=== PATIENT | female | born 1945 | race Caucasian/White ===

== ENCOUNTER → 2018-10-21 | Day surgery (SDC) | payer MEDICARE ==
[2018-09-27 14:00] LABS: BASOPHILS % 0.7 % (0.0-1.0); EOSINOPHILS # (AUTO) 0.2 (0.0-0.4); EOSINOPHILS % 3.7 % (0.0-6.0); HEMATOCRIT 37.6 % (34.2-44.1); HEMOGLOBIN 12.6 g/dL (12.0-16.0); LYMPHOCYTES # (AUTO) 1.5 (1.0-3.2); LYMPHOCYTES % 25.8 % (18.0-39.1); MEAN CORPUSCULAR HEMOGLOBIN 31.3 pg (28-32); MEAN CORPUSCULAR HGB CONC 33.5 g/dL (31-35); MEAN CORPUSCULAR VOLUME 93.5 fL (81-99); MONOCYTES # (AUTO) 0.8 (0.2-0.8); MONOCYTES % 13.7 % (4.4-11.3); NEUTROPHILS # (AUTO) 3.3 (2.1-6.9); NEUTROPHILS % 55.6 % (38.7-80.0); PLATELET COUNT 213 x10e3/uL (140-360); RED BLOOD COUNT 4.02 x10e6/uL (3.6-5.1); RED CELL DISTRIBUTION WIDTH 12.2 % (11.7-14.4)
[2018-09-27 14:18] LABS: CALCIUM 10.1 mg/dL (8.4-10.2); CREATININE, SERUM 1.1 mg/dL (0.57-1.11)
--- NOTE | 2018-09-27 14:37 | Diagnostic Imaging Report ---
EXAMINATION: PA and lateral views of the chest. COMPARISON: None CLINICAL HISTORY: Preoperative examination for podiatry surgery DISCUSSION: Lines/tubes: None. Lungs: The lungs are well inflated and clear. There is no evidence of pneumonia or pulmonary edema. Pleura: There is no pleural effusion or pneumothorax. Heart and mediastinum: The cardiomediastinal silhouette is normal. Bones and soft tissues: No acute bony abnormalities. Degenerative changes in the thoracic spine IMPRESSION: No acute cardiopulmonary abnormalities. Signed by: Dr. Dariel Cho M.D. on 09/27/2018 2:33 PM
[~2018-10-21] MED LIST: ADVAIR HFA 115-12 GM INH; ALENDRONATE SOD70 MG PO; AMBIEN5 MG PO; ASPIR 8181 MG PO; ATORVASTATIN CA20 MG PO; BUPIVACAINE HCL 0.5% INJ 30 ML VIAL INJ ONE; CALCIUM + VITA1 EACH PO; CEFAZOLIN SOD 1 GM/NS 50ML 100 ML IV ONE; DEXAMETHASONE SOD PHOS INJ 4 MG/ML VIAL ONE; FENTANYL CITRATE/PF 100MCG/2 ML INJ ONE; GABAPENTIN300 MG PO; KETOROLAC TROMETHAMINE 30 MG/ML VIAL ONE; LIDOCAINE HCL 2% LOCAL INJ 5 ML SDV VIAL INJ ONE; LORATADINE10 MG PO; LOSARTAN POTAS100 MG PO; LOSARTAN POTASS25 MG PO; MELOXICAM7.5 MG PO; METFORMIN HCL500 MG PO; METOPROLOL SUC100 MG PO; MIDAZOLAM HCL 2 MG/2 ML VIAL ONE; MUPIROCIN 2% OINT 22 GM TUBE ONE; NORVASC10 MG PO; OMEPRAZOLE20 MG PO; ONDANSETRON HCL INJ 2MG/ML 2ML 2 MG/ML VIAL ONE; PRAMIPEXOLE D0.25 MG PO; PROPOFOL IV EMULSION 10 MG/ML 20 ML VIAL ONE; SEVOFLURANE INHAL SOLN 250 ML PEN BTL ONE; ULTRAM50 MG PO; [UNRECOGNIZED DRUG - OTHER] PO; [UNRECOGNIZED DRUG - OTHER] PO
--- OUTSIDE RECORDS SUMMARY | 2018-10-21 05:38 | XMS REPORT | Encounter Summary ---
Author Organization Unknown Address [address] [place] [address] Phone [phone] Care Team Providers Care Supervisor Carding Name Role Phone Dr. Gracie Thomas 3 [phone] Gracie Thomas MD 3 [phone] Didier John MD 3 [phone] Chip Hayden DPM 2 [phone] [facility] [place] 2 [phone] José Luis Stephenson MD 107 [phone] Matt Kate MD 111 [phone] Oscar Deluna MD 115 [phone] [facility]) 125 [phone] René Sweeney MD 130 [phone] Reason for Visit Plantar fasciitis of left foot; Benign essential hypertension; Gastroesophageal reflux disease without esophagitis Instructions 1. Benign essential hypertension losartan 50 mg-hydrochlorothiazide 12.5 mg tablet metoprolol succinate ER 50 mg tablet,extended release 24 hr 2. Pain of left ankle joint meloxicam 15 mg tablet tramadol 50 mg tablet 3. Body mass index 30+ - obesity body mass index: care instructions learning about healthy weight 4. Gastroesophageal reflux disease without esophagitis omeprazole 40 mg capsule,delayed release 5. Plantar fasciitis of left foot podiatry referral - UPDATED REFERRAL-;Please contact & schedule our patient. thank you. 6. Diabetic peripheral neuropathy neurology referral - Please schedule & contact our patient. thank you 7. Low back pain XR, lumbosacral spine, 2 or 3 view orthopedic referral - UPDATED REFERRAL 8. Bilateral hip joint pain physical therapy referral XR, hip, bilateral - BILATERAL 9. Osteoporosis 10. Aphthous ulcer of mouth chlorhexidine gluconate 0.12 % mouthwash 11. Dysuria urinalysis, dipstick culture, urine 12. Urethral stricture urology referral - Please schedule & contact our patient./FAX CLINICAL TO [phone] Discussion Note: None recorded. Plan of Care Reminders Provider Appointments Est Patient 05/31/2018 10:00AM Gracie Thomas MD Lab Urinalysis, Dipstick 05/03/2018 [facility] ([facility] [place] Culture, Urine 05/03/2018 [facility] Laboratory Referral Orthopedic Referral 05/03/2018 Cesar Fan MD Physical Therapy Referral 05/03/2018 [facility] Neurology Referral 05/03/2018 Kong Xavier MD Podiatry Referral 05/03/2018 Chip Hayden DPM Urology Referral 05/03/2018 Oscar Deluna MD Procedures None recorded. Surgeries None recorded. Imaging XR, Lumbosacral Spine, 2 or 3 View 05/03/2018 [facility] [place] XR, Hip, Bilateral 05/03/2018 [facility] [place] Medications Name Start Date alendronate 70 mg tablet Take 1 tablet every week by oral route. atorvastatin 20 mg tablet Take 1 tablet every day by oral route at bedtime. Calcium 600 with Vitamin D3 BID- OTC chlorhexidine gluconate 0.12 % mouthwash Place 15 mL twice a day by mucous membrane route as needed. fluticasone 50 mcg/actuation nasal spray,suspension QD gabapentin 300 mg capsule TAKE ONE TABLET BY MOUTH 3 TIMES A DAY hydroxyzine HCl 25 mg tablet Take 1 tablet every day by oral route as needed for 30 days. Lancets, Super Thin QD Longs Adult Low Strength ASA 81 mg tablet,delayed release Take 1 tablet every day by oral route. losartan 50 mg-hydrochlorothiazide 12.5 mg tablet Take 1 tablet every day by oral route for 30 days. meloxicam 15 mg tablet Take 1 tablet every day by oral route for 30 days. metformin 500 mg tablet TAKE ONE TABLET BY MOUTH ONCE A DAY metoprolol succinate ER 100 mg tablet,extended release 24 hr Take 1 tablet every day by oral route for 90 days. metoprolol succinate ER 50 mg tablet,extended release 24 hr Take 1 tablet every day by oral route for 30 days. montelukast 10 mg tablet QD omeprazole 40 mg capsule,delayed release Take 1 capsule every day by oral route for 30 days. OneTouch Delica Lancets 33 gauge QD OneTouch Verio strips Take 1 strip every day by miscell. route. pramipexole 0.125 mg tablet Take 1 tablet 3 times a day by oral route for 90 days. ProAir HFA 90 mcg/actuation aerosol inhaler Inhale 2 puffs every 6-8 hours by inhalation route as needed for 10 days. tramadol 50 mg tablet Take 1 tablet twice a day by oral route as needed for 15 days. No alcohol or driving when on this medicine Medications Administered None recorded. Vitals Height Weight BMI Blood Pressure 5 ft 1 in 200 lbs 37.8 kg/m2 150/90 mm[Hg] Lab Results Date Name Specimen Result Interpretation Description Value Range Status Address 05/03/2018 Urinalysis, Dipstick Color Color yellow [facility] ([facility]) [place]: [address] [place] Color Appearance clear [facility] ([facility] [place]: [address] [place] Color Glucose negative [facility] ([facility] [place]: [address] [place] Color Bilirubin negative [facility] ([facility] [place]: [address] [place] Color Ketones negative [facility] ([facility]) [place]: [address] [place] Color Specific [place] 1.025 [facility] ([facility]) [place]: [address] [place] Color Blood negative [facility] [place]: [address] [place] Color PH 6.0 [facility] [place]: [address] [place] Color Protein negative [facility]) [place]: [address] [place] Color Urobilinogen 0.2 [facility] ([facility] [place]: [address] [place] Color Nitrites negative [facility] ([facility]) [place]: [address] [place] Color Leukocytes small [facility] ([facility] [place]: [address] [place] Allergies Code Code System Name Reaction Severity Status Onset 40689 RxNorm Lisinopril Cough Active Sulfa (Sulfonamide Antibiotics) Active 84171 RxNorm Terbinafine Respiratory Distress Active 43721 RxNorm Tetracycline Active Problems Name Status Onset Date Source Type 2 Diabetes Mellitus without Complication Active 06/17/2016 Mixed Hyperlipidemia Active 06/17/2016 Body Mass Index 30+ - Obesity Active 06/17/2016 Neuropathy Active 06/17/2016 Benign Essential Hypertension Active 06/17/2016 Gastroesophageal Reflux Disease without Esophagitis Active 06/17/2016 Non-alcoholic Fatty Liver Active 06/17/2016 Electrocardiogram Abnormal Active 06/17/2016 Alkaline Phosphatase Raised Active 07/09/2016 Blood in Urine Active 11/03/2016 Onychomycosis Active 03/14/2017 Diabetic Peripheral Neuropathy Active 03/14/2017 Restless Legs Active 03/14/2017 Allergic Rhinitis Active 03/14/2017 Osteoarthritis Active 03/14/2017 Plantar Fasciitis of Left Foot Active 02/01/2018 Osteoporosis Active 04/14/2018 Procedures Date Name Performed by 04/12/2014 Colonoscopy with Biopsy Information not available 05/25/1972 Foot/toes Surgery Procedure Information not available Breast Surgery Information not available Caesarean Section Information not available Cholecystectomy (Gall Bladder Removal) Information not available 05/03/2018 XR, Lumbosacral Spine, 2 or 3 View [facility] [place] [address] [place] [address] ([address]) 05/03/2018 XR, Hip, Bilateral [facility] [place] [address] [place] [address] ([address]) Vaccine List Vaccine Type influenza, high dose seasonal 01/05/20170.5 mL 12/24/20170.5 mL influenza, injectable, quadrivalent 12/12/2015 pneumococcal conjugate PCV 13 10/16/20160.5 mL pneumococcal polysaccharide PPV23 04/14/20180.5 mL pneumococcal, unspecified formulation 04/12/2013 Tdap 10/30/2016 Social History Smoking Status Never Smoker Past Encounters 05/03/2018 Benign Essential Hypertension; Pain of Left Ankle Joint; Body Mass Index 30+ - Obesity; Gastroesophageal Reflux Disease without Esophagitis; Plantar Fasciitis of Left Foot; Diabetic Peripheral Neuropathy; Low Back Pain; Bilateral Hip Joint Pain; Osteoporosis; Aphthous Ulcer of Mouth; Dysuria; Urethral Stricture Gracie Thomas MD: [address] [place] [address], Ph. 04/14/2018 Acute Bronchitis; Pneumococcal Vaccination; Senile Purpura; Peripheral Vascular Disease; Type 2 Diabetes Mellitus; Morbid Obesity Didier Garcia MD: [address] [place] [address], Ph. History of Present Illness Back Pain Reported By: Patient HPI: Location: lumbar; hip pain. Severity: pain level 9/10, severe (8-10), interference with work. Duration: intermittent (5-12 weeks). Onset/Timing: recurrent episode. Context: atraumatic. Alleviating Factors: rest, relieved by heat, NSAIDS, analgesics. Aggravating Factors: movement/positioning. Associated Symptoms: no fever, no weak limbs, no numbness of the legs/feet, no tingling, no chills. Previous Injury: previous injury to lumbar region: lumbar years ago Note:72yo female presents for follow-up visit. Last visit one month ago 03/28/18. Had AWV on 03/04/[address] Hassan. Pt recently switched from [employer] to [employer] insurance on Apr 12. Her neurologist, Dr Kong Xavier is on [employer]. Next appt with Dr Xavier on May 16, 2018.<div>Was seen by Dr Hassan for bronchitis earlier this month on 04/14/18. Took Augmentin & Cheratussin with good results. Did not buy ProAir inhaler (too expensive).</div> <div>Two weeks ago, stepped on niece's toy with left foot. Had immediate pain & amp; swelling in left foot. Needs podiatry referral updated to Dr Hayden to [facility] if he is taking her new insurance. Pt is planning to go to [facility] to get X R of lumbar spine & both hips. Has information to schedule with ortho, Dr René Sweeney at [facility], but will check to make sure he is in insurance.< /div><div>
</div><div>Pt would like to check urine - having some mild dysuria for past week. Usually sees Dr Oscar Deluna once a year in Apr. Has seen him for many years for urethral dilation.</div><div>
</div><div>Here today for referral updates with new insurance & medication refills. Patient is taking medicine consistently. Not having any issues with them.<div></div> </div><div> PMHx:</div><div>DM - Last A1c 6.4% at visit 10/22/17. AST 15, ALT 19, glu 119, Cr 0.75, GFR >60, K 4.7.
</div><div>Home blood sugar in 89-150 range. Last A1c was 6.4% on 10/22/17. On metformin.</div><div>Diabetic neuropathy - Dr. Xavier, neurologist. Recommended staying on gabapentin rather than switch to Lyrica. Had EMG/NCS showing mild diabetic neuropathy.</div><div>Restless legs - on medication per neurology. continuing pramipexole 0.125mg bid-tid for restless legs & leg cramps.</div><div>Cataracts - stable, no surgery needed. <span style="font-size: 14px;">Followed by Dr Matt Kate, </span>ophtho<span style="font-size: 14px;">. Did not see him in 2018.</span></div><div>Urethral stricture - Usually sees Dr Oscar Deluna once a year in Apr. Has seen him for many years for urethral dilation, past 25yrs.<div>Followed by Dr Stephenson, GI. Next colonoscopy age 75</div><div>
</div><div>Arthritis - followed by Dr Hayden, podiatry. Pt notes she's been having more trouble with bilateral hip pain & low back pain. 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 Is followed regularly by Dr Hayden, electronics worker, for acc essory bone in left foot. Would be interested in ortho eval (?injection) and ph ysical therapy for home exercises.</div><div>
</div><div>Osteoporosis - Since last visit, pt had bone density at [facility] on 03/15/18. Reviewed calcium & vitamin D recommendations as outline by Dr Hurtado. Will start weekly Fosamax.< /div><div><div>
</div><div><span style="font-size: 14px;">Has appt with derm, Dr. Arely Noble on Jan 07, 2018. Notes that the 8 tablets of diflucan & clotrimazole/betamethasone cream has resolved all the 'heat rash' under breasts. </span></div></div></div> Review of Systems:ROS as noted in the HPI Review of Systems Comprehensive General Adult ROS Reported By: Patient Constitutional: Constitutional: no fever Cardiovascular: Cardiovascular: no chest pain Respiratory: Respiratory: no shortness of breath Gastrointestinal: Gastrointestinal: no abdominal pain Musculoskeletal: Musculoskeletal: muscle aches, arthralgias/joint pain, back pain Neurologic: Neurologic: no loss of consciousness, no headaches Physical Exam General Adult Exam (Female), Upper Respiratory Infection Exam Comprehensive Reported By: Patient Constitutional: General Appearance: well-developed, morbidly obese. Level of Distress: NAD. Ambulation: limited ambulation; ambulating slowly & in discomfort to weight bearing , Lt foot Discomfort below the medial malleolus +, edema + Psychiatric: Insight: good judgement; non stop talking throughout the visit. Mental Status: active and alert, normal mood, normal affect. Orientation: to time, to place, to person Head: Head: normocephalic, atraumatic Eyes: Lids and Conjunctivae: non-injected, no discharge, no pallor. Pupils: PERRLA. Corneas: grossly intact. EOM: EOMI. Lens: clear. Sclerae: non-icteric ENMT: Ears: no lesions on external ear, EACs clear, TMs clear. Hearing: no hearing loss. Nose: no lesions on external nose, nares patent, no septal deviation, nasal passages clear, no sinus tenderness, no nasal discharge. Lips, Teeth, and Gums: no mouth or lip ulcers, no bleeding gums, normal dentition. Oropharynx: moist mucous membranes, no erythema, no exudates, tonsils not enlarged Neck: Neck: supple, trachea midline, no masses, FROM. Lymph Nodes: no cervical LAD, no supraclavicular LAD, no axillary LAD. Thyroid: no enlargement, non- tender, no nodules Lungs: Respiratory effort: no dyspnea. Auscultation: breath sounds normal, good air movement, CTA except as noted, no wheezing, no rales/crackles, no rhonchi Cardiovascular: Heart Auscultation: RRR, normal S1, normal S2, no murmurs, no rubs, no gallops Abdomen: Bowel Sounds: normal. Inspection and Palpation: soft, no tenderness, no guarding, no rebound tenderness, no masses, no CVA tenderness; morbidly obese. Liver: non-tender, no hepatomegaly Musculoskeletal:: Motor Strength and Tone: normal motor strength, normal tone. Joints, Bones, and Muscles: no bony abnormalities, no contractures, no malalignment, limited ROM, tenderness. Extremities: no cyanosis, no edema, no varicosities Neurologic: Gait and Station: normal gait, normal station. Cranial Nerves: grossly intact. Sensation: grossly intact Skin: Inspection and palpation: no rash, no lesions, no abnormal nevi, good turgor, no jaundice. Nails: normal Back: Thoracolumbar Appearance: normal curvature
--- OUTSIDE RECORDS SUMMARY | 2018-10-21 05:38 | XMS REPORT ---
Author [facility] Address Unknown Phone Unavailable Care Team Providers Care French Polisher Name Role Phone CARTER PABLO Unavailable Unavailable Problems This patient has no known problems. Allergies, Adverse Reactions, Alerts This patient has no known allergies or adverse reactions. Medications This patient has no known medications. Results Test Description Test Time Test Comments Text Results Atomic Results Result Comments CHEST 2 VIEWS 2018-09-27 14:32:00 [place] [address] Patient Name: CASPER MEADE MR #: [id number] : 1945 Age/Sex: 73/F Req #: [id number] Adm Physician: Ordered by: CARTER PABLO DPM Report #: [id number] Location: OR Room/Bed: Procedure: [id number] DX/CHEST 2 VIEWS Exam Date: 09/27/18 Exam Time: 1400 REPORT STATUS: Signed EXAMINATION: PA and lateral views of the chest. CO MPARISON: None CLINICAL HISTORY: Preoperative examination for podiatry surgery DISCUSSION: Lines/tubes: None. Lungs: The lungs are well inflated and clear. There is no evidence of pneumonia or pulmonary edema. Pleura: There is no pleural effusion or pneumothorax. Heart and mediastinum: The cardiomediastinal silhouette is normal. Bones and soft tissues: No acute bony abnormalities. Degenerative changes in the thoracic spine IMPRESSION: No acute cardiopulmonary abnormalities. Signed by: Dr. hSerrell Troy M.D. on 09/27/2018 2:33 PM Dictated By: SHERRELL TROY MD [id number] Transcribed By: JOSE GUADALUPE on 09/27/18 1433 COPY TO: CARTER PABLO DPM
--- OUTSIDE RECORDS SUMMARY | 2018-10-21 05:39 | XMS REPORT | Encounter Summary ---
Author Organization Unknown Address [address] [place] [address] Phone [phone] Care Team Providers Care City Dispatcher Name Role Phone Dr. Gracie Thomas 3 [phone] [facility] [place] 2 [phone] José Luis Stephenson MD 107 [phone] Matt Kate MD 111 [phone] Oscar Deluna MD 115 [phone] Chip Hayden DPM 120 [phone] [facility] 125 [phone] René Sweeney MD 130 [phone] Reason for Visit Benign essential hypertension Instructions 1. Benign essential hypertension irbesartan 300 mg-hydrochlorothiazide 12.5 mg tablet 2. Urethral stricture urology referral - PLEASE FAX NOTES TO [phone]. 3. Osteoarthritis 4. Low back pain orthopedic referral - PLEASE FAX NOTES TO [phone]. 5. Body mass index 30+ - obesity body mass index: care instructions learning about healthy weight 6. Depression screening learning about depression Discussion Note: None recorded. Plan of Care Reminders Provider Appointments Est Patient 08/09/2018 10:30AM Gracie Thomas MD Lab None recorded. Referral Urology Referral 06/28/2018 Oscar Deluna MD Orthopedic Referral 06/28/2018 Cesar Fan MD Procedures None recorded. Surgeries None recorded. Imaging None recorded. Medications Name Start Date alendronate 70 mg tablet Take 1 tablet every week by oral route. atorvastatin 20 mg tablet Take 1 tablet every day by oral route at bedtime. Calcium 600 with Vitamin D3 BID- OTC chlorhexidine gluconate 0.12 % mouthwash Place 15 mL twice a day by mucous membrane route as needed. clotrimazole-betamethasone 1 %-0.05 % topical cream fluticasone propionate 50 mcg/actuation nasal spray,suspension SPRAY TWO SPRAYS IN EACH NOSTRIL ONCE DAILY gabapentin 300 mg capsule TAKE ONE TABLET BY MOUTH 3 TIMES A DAY hydroxyzine HCl 25 mg tablet Take 1 tablet every day by oral route as needed for 30 days. irbesartan 300 mg-hydrochlorothiazide 12.5 mg tablet Take 1 tablet every day by oral route. Lancets, Super Thin QD Longs Adult Low Strength ASA 81 mg tablet,delayed release Take 1 tablet every day by oral route. loratadine 10 mg tablet Take 1 tablet every day by oral route as needed. losartan 100 mg-hydrochlorothiazide 25 mg tablet Take 1 tablet every day by oral route for 90 days. meloxicam 15 mg tablet TAKE ONE TABLET BY MOUTH DAILY FOR 30 DAYS metformin 500 mg tablet TAKE ONE TABLET BY MOUTH TWICE A DAY metoprolol succinate ER 100 mg [...] 30 days. OneTouch Delica Lancets 33 gauge USE TO CHECK FOR BLOOD SUGAR DAILY DIRECTED OneTouch Verio strips TEST ONCE DAILY pramipexole 0.125 mg tablet Take 1 tablet 3 times a day by oral route for 90 days. tramadol 50 mg tablet Take 1 tablet twice a day by oral route as needed for 15 days. Medications Administered None recorded. Vitals Height Weight BMI Blood Pressure 5 ft 1 in 203.4 lbs 38.4 kg/m2 (1) 150/94 mm[Hg] (2) 160/82 mm[Hg] Lab Results None recorded. Allergies Code Code System Name Reaction Severity Status Onset 44621 RxNorm Amlodipine Active 12431 RxNorm Lisinopril Cough Active Sulfa (Sulfonamide Antibiotics) Active 81309 RxNorm Terbinafine Respiratory Distress Active 25570 RxNorm Tetracycline Active Problems Name Status Onset [...] Cholecystectomy (Gall Bladder Removal) Information not available Vaccine List Vaccine Type influenza, high dose seasonal 01/05/20170.5 mL 12/24/20170.5 mL influenza, injectable, quadrivalent 12/12/2015 pneumococcal conjugate PCV 13 10/16/20160.5 mL pneumococcal polysaccharide PPV23 04/14/20180.5 mL pneumococcal, unspecified formulation 04/12/2013 Tdap 10/30/2016 Social History Smoking Status Never Smoker Past Encounters 06/28/2018 Benign Essential Hypertension; Urethral Stricture; Osteoarthritis; Low Back Pain; Body Mass Index 30+ - Obesity; Depression Screening Gracie Thomas MD: [address] [place] [phone], Ph. 05/31/2018 Acute Bronchitis; Benign Essential Hypertension; Type 2 Diabetes Mellitus without Complication; Body Mass Index 30+ - Obesity; Diabetic Peripheral Neuropathy; Osteoarthritis; Restless Legs Gracie Thomas MD: [address] [place] [phone], Ph. History of Present Illness Back Pain [...] injury to lumbar region: lumbar years ago URI - AMS Reported By: Patient Note:73yo female presents for follow-up visit. Last visit one month ago 05/31/18. Had AWV on 03/04/[address] Hassan. Pt saw proofer black and white, Dr Hayden on 05/30/18. He said to continue meloxicam until he can do foot surgery on left (hopes to make it three more months until the end of school year). Dr Hayden did XR of left foot in his office & found new bone fx after pt stepped on niece's toy. Has new tighter elastic ankle support from Dr Hayden's office.<div>
</div> <div>Since last visit, pt saw Dr Lyric Bowen at [facility] in [place], [place] last 06/22/18 - no change in glasses prescription. Next appt in 06/2019.</div><div>
</div><div>Since last visit, pt saw Dr Xavier, neuro on 06/07/18 and got gabapentin refill for next year. Next appt with Dr Xavier in one year in 05/2019.</div><div>
</div><div>Pt saw Dr Cesar Fan, ortho on 05/30/18 regarding back & hips. Is taking Fosamax 70mg weekly for osteoporosis along with calcium & vit D. Has not needed physical therapy. Next appt with Dr Fan is 07/11/18.</div><div>
</div><div>Needs referral updated to Dr Deluna, urologist for annual exam. Was due to see him in Apr 2018. Has seen him for many years for urethral dilation.</div><div><div><div><div>< div></div> </div><div>PMHx:</div><div>DM - Last A1c 6.4% at visit 10/22/17. AST 15, ALT 19, glu 119, Cr 0.75, GFR >60, K 4.7.
</div><div>Home blood sugar in 89-150 range. Last A1c was 6.4% on 10/22/17. On metformin.</div><div>Diabetic neuropathy - Dr. Xavier, neurologist. Recommended staying on gabapentin rather than switch to Lyrica. Had EMG/NCS showing mild diabetic neuropathy.</div><div> Restless legs - on medication per neurology. continuing pramipexole 0.125mg bid- tid for restless legs & leg cramps.</div><div>Cataracts - stable, no surgery needed. </div><div>Urethral stricture - Usually sees Dr Oscar Deluna once a year in Apr. Has seen him for many years for urethral dilation, past 25yrs.<div> Followed by Dr Stephenson, GI. Next colonoscopy age 75</div><div>
</div><div> Arthritis - followed by Dr Hayden, podiatry. Pt notes she's been having more t rouble with bilateral hip pain & low back pain. 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 Is followed regularly by Dr Hayden, [facility], for accessory bone in left foot. Would be interested in ortho eval (?injection) and physical therapy for home exercises.</div><div>
</div><div> Osteoporosis - Since last visit, pt had bone density at [facility] on 03/15/18. Rev iewed calcium & vitamin D recommendations as outline by Dr Hurtado. Will start weekly Fosamax.</div><div><div>
</div><div><span style="font-size: 14px;">Had appt with scar, Dr. Arely Noble on Jan 07, 2018. Notes that the 8 tablets of diflucan & clotrimazole/betamethasone cream has resolved all the 'heat rash' under breasts.</span></div></div></div></div></div></div> Review of Systems:ROS as noted in the HPI Review of Systems Comprehensive General Adult ROS Reported By: Patient Constitutional: Constitutional: no fever Cardiovascular: Cardiovascular: no chest pain Respiratory: Respiratory: no wheezing, no shortness of breath Gastrointestinal: Gastrointestinal: no abdominal pain, no diarrhea Musculoskeletal: Musculoskeletal: muscle aches, arthralgias/joint pain, back pain Neurologic: Neurologic: no loss of consciousness, no headaches Endocrine: Endocrine: fatigue Physical Exam General Adult Exam (Female), Upper [...]
--- OUTSIDE RECORDS SUMMARY | 2018-10-21 05:39 | XMS REPORT | Encounter Summary ---
Author Organization Unknown Address [address] [place] [address] Phone [phone] Care Team Providers Care Surface Supervisor Name Role Phone Dr. Gracie Thomas 3 [phone] Gracie Thomas MD 3 [phone] Didier John MD 3 [phone] Chip Hayden DPM 2 [phone] [facility] [place] 2 [phone] José Luis Stephenson MD 107 [phone] Matt Kate MD 111 [phone] Oscar Deluna MD 115 [phone] [facility] 125 [phone] René Sweeney MD 130 [phone] Reason for Visit Type 2 diabetes mellitus without complication; Benign essential hypertension; sore throat; cough Instructions 1. Acute bronchitis azithromycin 250 mg tablet Cheratussin AC 10 mg-100 mg/5 mL oral liquid loratadine 10 mg tablet 2. Benign essential hypertension losartan 100 mg-hydrochlorothiazide 25 mg tablet 3. Type 2 diabetes mellitus without complication diabetic ophthalmology referral - [place] [facility] PLEASE FAX NOTES TO [phone]. metformin 500 mg tablet 4. Body mass index 30+ - obesity body mass index: care instructions learning about healthy weight 5. Diabetic peripheral neuropathy 6. Osteoarthritis 7. Restless legs Discussion Note: None recorded. Plan of Care Reminders Provider Appointments Return to Office on or around 06/27/2018 Gracie Thomas MD Est Patient 06/28/2018 10:00AM Gracie Thomas MD Lab None recorded. Referral Diabetic Ophthalmology Referral 05/31/2018 Lyric Bowen MD Procedures None recorded. Surgeries None recorded. Imaging None recorded. Medications Name Start Date alendronate 70 mg tablet Take 1 tablet every week by oral route. atorvastatin 20 mg tablet Take 1 tablet every day by oral route at bedtime. azithromycin 250 mg tablet TAKE 2 TABLETS (500 MG) BY ORAL ROUTE ONCE DAILY FOR 1 DAY THEN 1 TABLET (250 MG) BY ORAL ROUTE ONCE DAILY FOR 4 DAYS Calcium 600 with Vitamin D3 BID- OTC Cheratussin AC 10 mg-100 mg/5 mL oral liquid Take 10 mL every 6 hours by oral route as needed. chlorhexidine gluconate 0.12 % mouthwash Place 15 mL twice a day by mucous membrane route as needed. clotrimazole-betamethasone 1 %-0.05 % topical cream fluticasone 50 mcg/actuation nasal spray,suspension QD gabapentin [...] day by oral route for 90 days. losartan 50 mg-hydrochlorothiazide 12.5 mg tablet Take [...] day by oral route for 30 days. ondansetron 4 mg disintegrating tablet Take 2 tablets every 12 hours by oral route for 3 days. OneTouch Delica Lancets 33 gauge QD OneTouch Verio strips TEST ONCE DAILY pramipexole [...] BMI Blood Pressure 5 ft 1 in 196 lbs 37 kg/m2 160/100 mm[Hg] Lab Results Date Name Specimen Result Interpretation Description Value Range Status Address 05/03/2018 Urinalysis, Dipstick Color Color yellow [facility] [place]: [address] [place] Color Appearance clear [facility] [place]: [address] [place] Color Glucose negative [facility] [place]: [address] [place] Color Bilirubin negative [facility] [place]: [address] [place] Color Ketones negative [facility] [place]: [address] [place] Color Specific [place] 1.025 [facility] [place]: [address] [place] Color Blood negative [facility] [place] [address] [place] Color PH 6.0 [facility] [place]: [address] [place] Color Protein negative [facility] [place]: [address] [place] Color Urobilinogen 0.2 [facility] [place]: [address] [place] Color Nitrites negative [facility] [place]: [address] [place] Color Leukocytes small [facility] [place]: [address] [place] Allergies Code Code System Name Reaction Severity Status Onset 50142 RxNorm Lisinopril Cough Active Sulfa (Sulfonamide Antibiotics) Active 05838 RxNorm Terbinafine Respiratory Distress Active 62338 RxNorm Tetracycline Active Problems Name Status Onset [...] XR, Lumbosacral Spine, 2 or 3 View [facility] [place] [address] [place], [place] [id number] ([place]) 05/03/2018 XR, Hip, Bilateral [facility] [place] [address] [place], [place] [phone] ([place]) Vaccine List Vaccine Type influenza, high dose seasonal 01/05/20170.5 mL 12/24/20170.5 mL influenza, injectable, quadrivalent 12/12/2015 pneumococcal conjugate PCV 13 10/16/20160.5 mL pneumococcal polysaccharide PPV23 04/14/20180.5 mL pneumococcal, unspecified formulation 04/12/2013 Tdap 10/30/2016 Social History Smoking Status Never Smoker Past Encounters 05/31/2018 Acute Bronchitis; Benign Essential Hypertension; Type 2 Diabetes Mellitus without Complication; Body Mass Index 30+ - Obesity; Diabetic Peripheral Neuropathy; Osteoarthritis; Restless Legs Gracie Thomas MD: [address] [place] [phone], Ph. 05/03/2018 Benign Essential Hypertension; Pain of Left Ankle Joint; Body Mass Index 30+ - Obesity; Gastroesophageal Reflux Disease without Esophagitis; Plantar Fasciitis of Left Foot; Diabetic Peripheral Neuropathy; Low Back Pain; Bilateral Hip Joint Pain; Osteoporosis; Aphthous Ulcer of Mouth; Dysuria; Urethral Stricture Gracie Thomas MD: [address] [place] [phone], Ph. History of Present Illness Back Pain [...] follow-up visit. Last visit one month ago 05/03/17. Had AWV on 03/04/[address] Hassan. Since last visit, pt saw milk runner, Dr Hayden yesterday 05/30/18. He said to continue meloxicam until he can do foot surgery on left (hopes to make it three more months until the end of school year). Dr Hayden did XR of left foot in his office & found new bone fx after pt stepped on niece's toy. Has new tighter elastic ankle support from Dr Hayden's office.<div>Is scheduled to see neurologist, Dr Xavier next Wednesday06/07/18 for gabapentin.</div><div>Saw Dr Cesar Fan, ortho, yesterday morning regarding her back & hips. He reviewed the XRs and took one more XR of pelvis & he thought pain was from muscles. Recommended continuing NSAIDs and PT for exercises ([facility] is not in-network).
<div>
</div><div><div> <span style="font-size: 14px;">Has not scheduled with Dr Deluna for annual exam. Usually sees Dr Oscar Deluna once a year in Apr. Has seen him for many years for urethral dilation.</span>
</div><div><div>
</div><div>Here today for referral update for eye exam with new insurance & medication refills. Patient is taking medicine consistently. Not having any issues with them.</div>< div>Blood sugar was 242 this morning. BP 160/100 in office today.</div><div>Has been sick with cold for past 6days. Niece is also sick (16mo). Runny nose, sore throat, cough, low-grade fever on Wednesday (101 degrees). Taking Singulair & Tylenol.
<div></div> </div><div>PMHx:</div><div>DM - Last A1c 6.4% at visit 10/22/17. AST 15, ALT 19, glu 119, Cr 0.75, GFR >60, K 4.7.
</div><div>Home blood sugar in 89-150 range. Last A1c was 6.4% on 10/22/17. On metformin.</div>< div>Diabetic neuropathy - Dr. Xavier, neurologist. Recommended staying on gabapentin rather than switch to Lyrica. Had EMG/NCS showing mild diabetic neuropathy.</div><div>Restless legs - on medication per neurology. continuing pramipexole 0.125mg bid-tid for restless legs & leg cramps.</div><div> Cataracts - stable, no surgery needed. <span style="font-size: 14px;">Followed by Dr Matt Kate, </span>ophtho<span style="font-size: 14px;">. Did not see him in 2018.</span></div><div>Urethral stricture - Usually sees Dr Oscar Deluna once a year in Apr. Has seen him for many years for urethral dilation, past 25yrs.<div>Followed by Dr Stephenson, GI. Next colonoscopy age 75</div><div>
< /div><div>Arthritis - followed by Dr Hayden, podiatry. Pt notes she's been having more trouble with bilateral hip pain & low back pain. 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 Is followed regularly by Dr Hayden, milk runner, for accessory bone in left foot. Would be interested in ortho eval (?injection) and physical therapy for home exercises.</div><div>
< /div><div>Osteoporosis - Since last visit, pt had bone density at [facility] on 03/15/18. Reviewed calcium & vitamin D recommendations as outline by Dr Hurtado. Will start weekly Fosamax.</div><div><div>
</div><div><span style="font-size: 14px;">Has appt with derm, Dr. Arely Noble on Jan 07, 2018. Notes that the 8 tablets of diflucan & clotrimazole/betamethasone cream has resolved all the 'heat rash' under breasts.</span></div></div></div></div></div> </div> Review of Systems:ROS as noted in the HPI Review of Systems Comprehensive General Adult ROS Reported By: Patient Constitutional: Constitutional: fever Eyes: Eyes: no vision change ENMT: Ears: no difficulty hearing, no ear pain. Nose: no frequent nosebleeds, nose problems, sinus problems. Mouth/Throat: sore throat Cardiovascular: Cardiovascular: no chest pain Respiratory: Respiratory: no wheezing, no shortness of breath, no coughing up blood, cough Gastrointestinal: Gastrointestinal: no abdominal pain, no nausea, no vomiting, no diarrhea Musculoskeletal: Musculoskeletal: muscle aches, arthralgias/joint pain, back pain Neurologic: Neurologic: no loss of consciousness, no headaches Endocrine: Endocrine: fatigue Allergic/Immunologic: Allergy/Immunologic: runny nose, sinus pressure Physical Exam General Adult Exam (Female), Upper Respiratory Infection Exam Comprehensive Reported By: Patient Constitutional: General Appearance: well-developed, in no acute distress, morbidly obese. Ambulation: limited ambulation; ambulating slowly & in discomfort to weight bearing , Lt foot Discomfort below the medial malleolus +, edema + Psychiatric: Insight: good judgement; non stop talking throughout the visit. Mental Status: active and alert, normal mood, normal affect. Orientation: to time, to place, to person Head: Head: normocephalic, atraumatic Eyes: Lids and Conjunctivae: non-injected, no discharge, no pallor. Pupils: PERRLA, PERRLA. Corneas: grossly intact. EOM: EOMI. Lens: clear. Sclerae: non-icteric ENMT: Ears: no lesions on external ear, EACs clear, TMs clear. Hearing: no hearing loss. Nose: no lesions on external nose, nares patent, no septal deviation, nasal passages clear, no sinus tenderness, no nasal discharge, normal, pink and moist. Lips, Teeth, and Gums: no mouth or lip ulcers, no bleeding gums, normal dentition. Oropharynx: no exudates, tonsils not enlarged Neck: Neck: supple, trachea midline, no masses, FROM, symmetrical. Lymph Nodes: no cervical LAD, no supraclavicular LAD, no axillary LAD. Thyroid: no enlargement, non-tender, no nodules Lungs: Respiratory effort: no dyspnea. Auscultation: breath sounds normal, good air movement, CTA except as noted, no wheezing, no rales/crackles, no rhonchi Cardiovascular: Heart Auscultation: RRR, normal S1, normal S2, no murmurs, no rubs, no gallops. Auscultation regular rate and rhythm. Observation/Palpation of peripheral vascular system carotid pulse normal Abdomen: Bowel Sounds: normal. Inspection and Palpation: [...] abnormal nevi, good turgor, no jaundice. Nails: normal. Inspection and palpation: no rash Back: Thoracolumbar Appearance: normal curvature Ears: Right External auditory canal normal appearance. Left External auditory canal normal appearance. Right Tympanic membrane pearly argueta, landmarks clear. Left Tympanic membrane: pearly argueta, landmarks clear Oral Cavity/Mouth: Oral Mucosa: normal, moist. Tonsils: erythema. Posterior pharynx: erythema Lymph Nodes: Cervical no palpable lymph node enlargement, no submandibular adenopathy, no posterior cervical adenopathy, no anterior cervical adenopathy
--- OUTSIDE RECORDS SUMMARY | 2018-10-21 05:40 | XMS REPORT | Encounter Summary ---
Author Organization Unknown Address [address] [place] [address] Phone [phone] Care Team Providers Care Grain Commodity Manager Name Role Phone Dr. Gracie Thomas 3 [phone] [facility] [place] 2 [phone] José Luis Stephenson MD 107 [phone] Oscar Deluna MD 115 [phone] Chip Hayden DPM 120 [phone] [facility] 125 [phone] Cesar Fan MD 130 [phone] Reason for Visit Benign essential hypertension Instructions 1. Plantar fasciitis of left foot podiatry referral - PLEASE CALL PATIENT AND SCHEDULE HER AN APPOINTMENT. 2. Low back pain 3. Benign essential hypertension metoprolol succinate ER 50 mg tablet,extended release 24 hr metoprolol succinate ER 100 mg tablet,extended release 24 hr 4. Type 2 diabetes mellitus without complication OneTouch Verio strips 5. Body mass index 30+ - obesity body mass index: care instructions learning about healthy weight 6. Gastroesophageal reflux disease without esophagitis omeprazole 40 mg capsule,delayed release 7. Neuropathy Discussion Note: None recorded. Plan of Care Reminders Provider Appointments Nurse Visit 09/12/2018 8:00AM Nurse [place] Est Patient 09/19/2018 9:30AM Gracie Thomas MD Lab None recorded. Referral Podiatry Referral 08/09/2018 Chip Hayden DPM Procedures None recorded. Surgeries None recorded. Imaging None recorded. Medications Name Start Date alendronate 70 mg tablet Take 1 tablet every week by oral route. atorvastatin 20 mg tablet TAKE ONE TABLET BY MOUTH EVERY NIGHT AT BEDTIME Calcium 600 with Vitamin D3 BID- OTC [...] oral route as needed. losartan 100 mg-hydrochlorothiazide 12.5 mg tablet Take 1 tablet every day by oral route. 08/09/2018 losartan 100 mg-hydrochlorothiazide 25 mg tablet Take [...] 30 days. montelukast 10 mg tablet QD nitrofurantoin monohydrate/macrocrystals 100 mg capsule omeprazole 40 mg capsule,delayed release Take 1 capsule every day by oral route for 30 days. OneTouch Delica Lancets 33 gauge USE TO CHECK FOR BLOOD SUGAR DAILY DIRECTED OneTouch Verio strips TEST TWICE DAILY pramipexole 0.125 mg tablet Take 1 tablet 3 times a day by oral route for 90 days. tramadol 50 mg tablet Take 1 tablet twice a day by oral route as needed for 15 days. Medications Administered None recorded. Vitals Height Weight BMI Blood Pressure 5 ft 1 in 201.8 lbs 38.1 kg/m2 (1) 140/74 mm[Hg] (2) 142/80 mm[Hg] Lab Results None recorded. Allergies Code Code System Name Reaction Severity Status Onset 40632 RxNorm Amlodipine Active 338598 RxNorm Wilkerson Rash Active 83753 RxNorm Lisinopril Cough Active Sulfa (Sulfonamide Antibiotics) Active 18324 RxNorm Terbinafine Respiratory Distress Active 53040 RxNorm Tetracycline Active Problems Name Status Onset [...] Active 04/14/2018 Procedures Date Name Performed by 04/12/2009 Cholecystectomy (Gall Bladder Removal) Information not available 02/10/1991 Breast Surgery Information not available 02/08/1973 Caesarean Section Information not available 05/25/1972 Foot/toes Surgery Procedure Information not available Vaccine List Vaccine Type influenza, high dose seasonal 01/05/20170.5 mL 12/24/20170.5 mL influenza, injectable, quadrivalent 12/12/2015 pneumococcal conjugate PCV 13 10/16/20160.5 mL pneumococcal polysaccharide PPV23 04/14/20180.5 mL pneumococcal, unspecified formulation 04/12/2013 Tdap 10/30/2016 Social History Smoking Status Never Smoker Past Encounters 08/09/2018 Plantar Fasciitis of Left Foot; Low Back Pain; Benign Essential Hypertension; Type 2 Diabetes Mellitus without Complication; Body Mass Index 30+ - Obesity; Gastroesophageal Reflux Disease without Esophagitis; Neuropathy Gracie Thomas MD: [address] [place] [address], Ph. History of Present Illness Note:73yo female presents for follow-up visit. Last visit one month ago 06/28/18. Has upcoming appt next Wednesday08/15/18 with urologist, Dr Deluna -usually sees him in Apr, but had change of insurance so appt delayed. Has seen him for about 5 years for urethral dilation.<div>
<div>Pt saw Dr Lyric Bowen at [facility] in [place], [place] last 06/22/18 - no change in glasses prescription. Next appt in 06/2019.</div><div>
</div><div>Since last visit, pt saw Dr Griffin Fan, ortho on 07/11/18 for low back pain. Started physical therapy, but having trouble with insurance. Is taking Fosamax 70mg weekly for osteoporosis along with calcium & vit D. Return visit with Dr Fan on 08/16/18.</div><div>
</div><div>Needs referral updated to assistant store manager, Dr Hayden for left foot pain after school is out at end of August. Pt saw assistant store manager, Dr Hayden on 05/30/18. He said to continue meloxicam until he can do foot surgery on left (hopes to make it three more months until the end of school year). Dr Hayden did XR of left foot in his office & found new bone fx after pt stepped on niece's toy. Has new tighter elastic ankle support from Dr Hayden's office.</div><div><div>
</div><div>Pt saw Dr Xavier, neuro on 06/07/18 and got gabapentin refill for next year. Next appt with Dr Xavier in one year in 05/2019.</div><div>
</div><div>Here today for bp medication refills.< /div><div>
</div><div><div>PMHx:</div><div>DM - Last A1c 6.4% at visit 10/22/17. [...] cramps.</div><div> Cataracts - stable, no surgery needed. </div><div>Urethral stricture - Usually sees Dr Oscar Deluna once a year in Apr. Has seen him for many years for urethral dilation, past 25yrs.<div>Followed by Dr Stephenson, GI. Next colonoscopy age 75< /div><div>
</div><div>Arthritis - followed by Dr Hayden, podiatry. Pt notes she's been having more trouble with bilateral hip pain & low back pain. 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 Is followed regularly by Dr Hayden, assistant store manager, for accessory bone in left foot. Would be interested in ortho eval (?injection) and physical therapy for home exercises.< /div><div>
</div><div>Osteoporosis - Since last visit, pt had bone density at [facility] on 03/15/18. Reviewed calcium & vitamin D recommendations as outline by Dr Hurtado. Will start weekly Fosamax.</div><div><div>
</div><div> <span style="font-size: 14px;">Had appt with derm, Dr. Arely Noble on Jan 07, 2018. Notes that the 8 tablets of diflucan & clotrimazole/betamethasone cream has resolved all the 'heat rash' under breasts.</span></div></div></div>< /div></div></div> Review of Systems:ROS as noted in the HPI Review of Systems Comprehensive General Adult ROS Reported By: Patient Constitutional: Constitutional: no fever Cardiovascular: Cardiovascular: no chest pain Respiratory: Respiratory: no wheezing, no shortness of breath Gastrointestinal: Gastrointestinal: no abdominal pain, no diarrhea Musculoskeletal: Musculoskeletal: muscle aches, arthralgias/joint pain, back pain Neurologic: Neurologic: no loss of consciousness, no headaches, numbness; neuropathy on gabapentin Endocrine: Endocrine: fatigue Physical Exam General Adult [...] normal tone. Joints, Bones, and Muscles: no contractures, no malalignment, limited ROM, bony deformity, tenderness. Extremities: no cyanosis, no edema, no varicosities Neurologic: Gait and Station: normal gait, normal station. Cranial Nerves: grossly intact. Sensation: grossly intact Skin: Inspection and palpation: no rash, no lesions, no abnormal nevi, good turgor, no jaundice. Nails: normal Back: Thoracolumbar Appearance: normal curvature
--- OUTSIDE RECORDS SUMMARY | 2018-10-21 05:40 | XMS REPORT | Encounter Summary ---
Author Organization Unknown Address [address] [place] [address] Phone [phone] Care Team Providers Care Refrigeration Repair Supervisor Name Role Phone Dr. Gracie Thomas 3 [phone] [facility] [place] 2 [phone] José Luis Stephenson MD 107 [phone] Oscar Deluna MD 115 [phone] Chip Hayden DPM 120 [phone] [facility] 125 [phone] Cesar Fan MD 130 [phone] Reason for Visit lab only visit Instructions 1. Mixed hyperlipidemia CMP, serum or plasma lipid panel, serum 2. Benign essential hypertension CBC w/ auto diff 3. Type 2 diabetes mellitus without complication HbA1c (hemoglobin A1c), blood Discussion Note: None recorded. Patient educational handouts: No information available. Plan of Care Reminders Provider Appointments Est Patient 09/19/2018 9:30AM Gracie Thomas MD Lab CMP, Serum or Plasma 09/12/2018 [facility] Lipid Panel, Serum 09/12/2018 [facility] HbA1C (Hemoglobin a1C), Blood 09/12/2018 [facility] CBC W/ Auto Diff 09/12/2018 [facility] Referral None recorded. Procedures None recorded. Surgeries None recorded. Imaging [...] day by oral route for 30 days. [employer] Delica Lancets 33 gauge USE TO CHECK FOR BLOOD SUGAR DAILY DIRECTED OneTouch Verio strips TEST TWICE DAILY pramipexole 0.125 mg tablet Take 1 tablet 3 times a day by oral route for 90 days. tramadol 50 mg tablet Take 1 tablet twice a day by oral route as needed for 15 days. Medications Administered None recorded. Vitals None recorded. Lab Results None recorded. Allergies Code Code System Name Reaction Severity Status Onset 87761 RxNorm Amlodipine Active 485726 RxNorm Wilkerson Rash Active 85383 RxNorm Lisinopril Cough Active Sulfa (Sulfonamide Antibiotics) Active 38031 RxNorm Terbinafine Respiratory Distress Active 71739 RxNorm Tetracycline Active Problems Name Status Onset [...] History Smoking Status Never Smoker Past Encounters 09/12/2018 Mixed Hyperlipidemia; Benign Essential Hypertension; Type 2 Diabetes Mellitus without Complication Gracie Thomas MD: [address] [place] [address], Ph. History of Present Illness None recorded. Review of Systems None recorded. Physical Exam None recorded.
--- OUTSIDE RECORDS SUMMARY | 2018-10-21 05:41 | XMS REPORT | Encounter Summary ---
Author Organization Unknown Address [address] [place] [address] Phone [phone] Care Team Providers Care Principal Technical Writer Name Role Phone Dr. Gracie Thomas 3 [phone] [facility] [place] 2 [phone] José Luis Stephenson MD 107 [phone] Oscar Deluna MD 115 [phone] Chip Hayden DPM 120 [phone] [facility] 125 [phone] Cesar Fan MD 130 [phone] Reason for Visit lab follow-up; other - see typed reason Instructions 1. Type 2 diabetes mellitus without complication Segluromet 7.5 mg-1,000 mg tablet 2. Body mass index 30+ - obesity body mass index: care instructions learning about healthy weight 3. Candidiasis of vagina fluconazole 150 mg tablet 4. Mixed hypercholesterolemia and hypertriglyceridemia fenofibrate 160 mg tablet 5. Benign essential hypertension cardiology referral 6. Osteoarthritis orthopedic referral podiatry referral Discussion Note: None recorded. Plan of Care Reminders Provider Appointments Est Patient 10/28/2018 1:30PM Gracie Thomas MD Lab None recorded. Referral Cardiology Referral 09/29/2018 Orthopedic Referral 09/29/2018 Cesar Fan MD Podiatry Referral 09/29/2018 Chip Hayden DPM Procedures None recorded. Surgeries [...] needed. clotrimazole-betamethasone 1 %-0.05 % topical cream fenofibrate 160 mg tablet Take 1 tablet every day by oral route. fluconazole 150 mg tablet Take 1 tablet twice a week by oral route as needed. fluticasone propionate 50 mcg/actuation nasal spray,suspension SPRAY [...] day by oral route for 30 days. omeprazole 40 mg capsule,delayed release Take 1 capsule every day by oral route for 30 days. [employer] Delica Lancets 33 gauge USE TO CHECK FOR BLOOD SUGAR DAILY DIRECTED [employer] Verio strips TEST TWICE DAILY pramipexole 0.125 mg tablet Take 1 tablet 3 times a day by oral route for 90 days. Segluromet 7.5 mg-1,000 mg tablet Take 1 tablet every day by oral route in the morning. tramadol 50 mg tablet Take 1 tablet twice a day by oral route as needed for 15 days. Medications Administered None recorded. Vitals Height Weight BMI Blood Pressure 5 ft 1 in 199 lbs 37.6 kg/m2 (1) 180/90 mm[Hg] (2) 160/80 mm[Hg] Lab Results Date Name Specimen Result Interpretation Description Value Range Status Address 09/12/2018 CBC W/ Auto Diff Wbc 5.73 x10*3/L 3.98-10.04 x10*3/L [facility]: [address] Low Rbc 3.77 10*12/L 3.93-5.22 10*12/L [facility]: [address] Hemoglobin 12.00 g/dL 11.20-15.70 g/dL [facility]: [address] [place] Hematocrit 36.6 % 34.1-44.9 % [facility]: [address] [place] Mcv 97.1 fL 80.0-100.0 fL Final [facility]: [address] [place] Mch 31.8 pg 25.6-32.2 pg Final [facility]: [address] [place] Mchc 32.8 g/dL 32.2-35.5 g/dL [facility]: [address] [place] RDW-SD 44.5 fL 36.4-46.3 fL [facility]: [address] [facility] Plate[facility] Count 222.0 k/uL 182.0-369.0 k/uL [facility]: [address] [facility] Mpv 10.0 fL 7.5-11.5 fL [facility]: [address] [place] Neut% 52.8 % 34.0-71.1 % [facility]: [address] [place] Lymph% 30.4 % 19.3-51.7 % [facility]: [address] [place] Mon% 10.5 % 4.7-12.5 % [facility]: [address] [place] Eos% 5.6 % 0.7-5.8 % [facility]: [address] [facility] Baso% 0.7 % 0.1-1.2 % [facility]: [address] [place] Neut# 3.0 x10*3/L 1.6-6.1 x10*3/L [facility]: [address] [place] Lymph# 1.7 x10*3/L 1.2-3.7 x10*3/L [facility]: [address] [facility] Mon# 0.6 x10*3/L 0.2-0.9 x10*3/L [facility]: [address] [place] Eos# 0.32 x10*3/L 0.04-0.36 x10*3/L [facility]: [address] [place] Baso# 0.04 x10*3/L 0.01-0.08 x10*3/L [facility]: [address] [place] 09/12/2018 CMP, Serum or Plasma Alt 26 U/L 0-55 U/L [facility]: [address] [place] [address] Ast 21 U/L 5-34 U/L [facility]: [address] [facility] [place] High Bun 26.3 mg/dL 9.8-25.0 mg/dL [facility]: [address] Alk Phos 82 unit/L 40-150 unit/L [facility]: [address] High Glucose 191 mg/dL 70-99 mg/dL [facility]: [address] Albumin 3.7 g/dL 3.4-5.1 g/dL [facility]: [address] Creatinine 0.92 mg/dL 0.57-1.11 mg/dL [facility]: [address] eGFR Non- >60 mL/min/1.73m2 [facility]: [address] Total Bilirubin 0.6 mg/dL 0.2-1.2 mg/dL [facility]: [address] eGFR - >60 mL/min/1.73m2 [facility]: [address] Sodium 139 mEq/L 135-145 mEq/L [facility]: [address] Potassium 4.6 mEq/L 3.5-5.1 mEq/L [facility]: [address] [place] [address] Chloride 101 mmol/L 98-110 mmol/L [facility]: [address] Total Protein 7.3 g/dL 6.1-8.2 g/dL [facility]: [address] Calcium 9.9 mg/dL 8.6-10.4 mg/dL [facility]: [address] Co2 27.2 mmol/L 20.0-32.0 mmol/L [facility]: [address] [place] [address], [place] Anion Gap 11 calc Final [facility]: [address] [place] [address], [place] 09/12/2018 Lipid Panel, Serum Low Hdl 34 mg/dL 50-0 mg/dL [facility]: [address] [place] [address], [place] High Triglyceride 713 mg/dL <150 mg/dL [facility]: [address] VLDL (Calculated) 143 mg/dL [facility]: [address] cholesterol/HDL Ratio 6.0 mg/dL [facility]: [address] High non-HDL Cholesterol (Calculated) 169 mg/dL 0-160 mg/dL [facility]: [address] High Cholesterol 203 mg/dL 0-200 mg/dL [facility]: [address] LDL (Calculated) see comment mg/dL <130 mg/dL [facility]: [address] [place] [address], [place] 09/12/2018 HbA1C (Hemoglobin a1C), Blood High A1C W/eag 7.6 % 1.0-5.7 % [facility]: [address] [place] [address], [place] Average Blood Glucose 171 mg/dL [facility]: [address] [place] [address], [place] Allergies Code Code System Name Reaction Severity Status Onset 46164 RxNorm Amlodipine Active 414003 RxNorm Wilkerson Rash Active 56017 RxNorm Lisinopril Cough Active Sulfa (Sulfonamide Antibiotics) Active 62379 RxNorm Terbinafine Respiratory Distress Active 77459 RxNorm Tetracycline Active Problems Name Status Onset [...] History Smoking Status Never Smoker Past Encounters 09/19/2018 Type 2 Diabetes Mellitus without Complication; Body Mass Index 30+ - Obesity; Candidiasis of Vagina; Mixed Hypercholesterolemia and Hypertriglyceridemia; Benign Essential Hypertension; Osteoarthritis Gracie Thomas MD: [address] [place] [phone], Ph. 09/12/2018 Mixed Hyperlipidemia; Benign Essential Hypertension; Type 2 Diabetes Mellitus without Complication Gracie Thomas MD: [address] [place] [phone], Ph. History of Present Illness Note:73yo female presents for follow-up visit. Last visit one month ago 08/09/18. Had urethral dilatation on Wednesday08/15/18 with urologist, Dr Deluna. Pt notes that she had a bladder infection at that appt & was given nitrofurantoin. Now has yeast infection - usually takes two tablets of Diflucan, and needs it filled today. Has white discharge, thick, itchy. Has seen him for about 5 years for urethral dilation.<div>
</div><div>Previously:</div><div><div>Pt saw Dr Griffin Fan, ortho on 08/16/18 for low back pain. Started physical therapy, but having trouble with insurance denial. New PT referral placed, but hasn't heard from them. Is taking Fosamax 70mg weekly for osteoporosis along with calcium & vit D.
</div><div><div>
</div><div>Needs referral updated to staff toxicologist, Dr Hayden for left foot pain after school is out at end of August. Pt saw staff toxicologist, Dr Hayden on 05/30/18. He said to [...] Dr Xavier in one year in 05/2019.</div><div>
</div><div><div>PMHx:</div><div>DM - Last A1c 7.6% at visit 09/12/18. On metformin.</div><div>Diabetic neuropathy - Dr. Xavier, neurologist. Recommended staying on gabapentin rather than switch to Lyrica. Had EMG/NCS showing mild diabetic neuropathy.</div><div>
</div><div>Restless legs - on medication per neurology. continuing pramipexole 0.125mg bid-tid for restless legs & leg cramps.</div><div>
</div><div>Cataracts - stable, no surgery needed. Pt saw Dr Lyric Bowen at [facility] in [place], [place] on Wed06/22/18 - no change in glasses prescription. Next appt in 06/2019.
< /div><div>
</div><div>Urethral stricture - Usually sees Dr Oscar Deluna once a year in Apr. Has seen him for many years for urethral dilation, past 25yrs.< div>Followed by Dr Stephenson, GI. Next colonoscopy age 75</div><div>
</div><div >Arthritis - followed by Dr Hayden, podiatry. Pt notes she's been having more trouble with bilateral hip pain & low back pain. 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 Is followed regularly by Dr Hayden, staff toxicologist, for accessory bone in left foot. Would be interested in ortho eval (?injection) and physical therapy for home exercises.</div><div>
</div><div> Osteoporosis - Since last visit, pt had bone density at [facility] on 03/15/18. Rev iewed calcium & vitamin D recommendations as outline by Dr Hurtado. Will start weekly Fosamax.</div><div><div>
</div><div><span style="font-size: 14px;">Had appt with derm, Dr. Arely Noble on Jan 07, 2018. Notes that the 8 tablets of diflucan & clotrimazole/betamethasone cream has resolved all the 'heat rash' under breasts.</span></div></div></div></div></div></div></div> Review of Systems:ROS as noted in the [...]
[2018-10-21 10:30] VITALS: BP 132/73
--- NOTE | 2018-11-10 18:46 | Operative Report ---
DATE OF PROCEDURE: 10/21/2018 SURGEON: Chip Hayden DPM PREOPERATIVE DIAGNOSES: 1. Posterior tibial tendon rupture, left foot. 2. Capsulitis, tendinitis, left foot. 3. Prominent medial navicular, left foot. POSTOPERATIVE DIAGNOSES: 1. Posterior tibial tendon rupture, left foot. 2. Capsulitis, tendinitis, left foot. 3. Prominent medial navicular, left foot. TITLE OF THE OPERATION: Repair of the posterior tibial tendon of the left foot with Kidner procedure, left foot. ANESTHESIA: General endotracheal. HEMOSTASIS: Left thigh tourniquet at 350 mmHg. PROCEDURE IN DETAIL: The patient was taken to the operating room in a mildly sedated state and placed on the operating table in supine position. Following induction of general anesthetic, the left lower extremity was elevated to 60 degrees to exsanguinate before inflating the pneumatic thigh tourniquet to 350 mmHg to create good hemostasis. Left lower extremity was placed on the operating table prior to performing the following procedure. Procedure #1 is posterior tibial tendon repair of the left foot. An approximate 6 cm linear incision was placed along the course of posterior tibial tendon and directed to its insertion at the medial aspect of the navicular on the left foot. Incision was deepened via sharp and blunt dissection on the level of dorsal capsular structure. Care was taken to identify and retract all vital structures encountered. However, the first of the medial navicula was noted to be prominent. There is a rupture along the mid stance portion of the posterior tibial tendon. Old anchor was noted in that area as well. Utilizing a new absorbable anchor in a separate area after debridement of the prominent bone, the anchor was inserted and FiberWire was used to close the PT tendon to the associated bone prominence. The ruptured area was ellipsed and closed with nonabsorbable suture as well. The area was irrigated with copious amounts of sterile saline solution. Human tissue allograft was used as a grafting over the repair. The area was previously irrigated. The closure was 3-0 Vicryl, 4-0 nylon. Posterior tibial block had been performed for postoperative comfort with 0.5 Marcaine. The patient was then dressed in a posterior splint, left the operating room with vital signs stable in apparent satisfactory condition having tolerated both anesthetic and procedure very well. Normal hyperemic flush having returned to all digits once the tourniquet was released. Chip KAUSHAL Hayden /[id number]
== END | disposition home or self-care (01) ==
LOC: OR 05:35
PROVIDERS: ATTEND Podiatrist Foot Surgery
DX: M66.872 Spontaneous rupture of other tendons, left ankle and foot (principal); M77.52 Other enthesopathy of left foot and ankle; M21.6X2 Other acquired deformities of left foot; M54.9 Dorsalgia, unspecified; E11.9 Type 2 diabetes mellitus without complications; K21.9 Gastro-esophageal reflux disease without esophagitis; J30.2 Other seasonal allergic rhinitis; I10 Essential (primary) hypertension; Z88.1 Allergy status to other antibiotic agents; Z88.2 Allergy status to sulfonamides; Z88.8 Allergy status to other drugs, medicaments and biological substances; Z01.810 Encounter for preprocedural cardiovascular examination; Z01.812 Encounter for preprocedural laboratory examination; Z01.818 Encounter for other preprocedural examination; Z79.82 Long term (current) use of aspirin
CPT/HCPCS: 28238; 36415 ×2; 71046; 80048; 82948; 85025; 93005; C1713 ×2; J0690; J1885; J2001; J2250; J2405; J2704; J3010; Q4100; J1100